=== PATIENT | male | born 1940 | race Caucasian/White ===

== ENCOUNTER 2016-10-05 16:03 | Emergency (ER) | payer OTHER ==
[2016-10-05 16:08] VITALS: BP 141/77
[2016-10-05] MEDS ORDERED: MOBIC7.5 M1 PO (16:50)
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
[2016-10-05] MEDS ORDERED: TYLENOL WITH C1 EACH PO (16:57)
== END 2016-10-05 17:07 ==
LOC: ERH 16:03
DX: S39.012A Strain of muscle, fascia and tendon of lower back, initial encounter (principal); V43.52XA Car driver injured in collision with other type car in traffic accident, initial encounter; Y92.9 Unspecified place or not applicable